=== PATIENT | female | born 1985 | race Caucasian/White ===

== ENCOUNTER 2020-04-15 17:59 | Emergency (ER) | payer OTHER ==
[~2020-04-15] VITALS: Ht 172.7 cm; Wt 90.7 kg
[~2020-04-15 17:59] MED LIST: ADVAIR 250-501 EACH IH; ALLEGRA30 MG PO; HYDROXYZINE HCL25 M1 GT; MEDROLDOSEPACK PO
[2020-04-15 18:41] LABS: URINE BILIRUBIN NEGATIVE (Negative); URINE BLOOD NEGATIVE (Negative); URINE CLARITY CLEAR; URINE COLOR YELLOW; URINE GLUCOSE-RANDOM* NEGATIVE (Negative); URINE KETONES NEGATIVE (Negative); URINE LEUKOCYTES-REFLEX NEGATIVE (Negative); URINE NITRITE-REFLEX NEGATIVE (Negative); URINE PROTEIN (DIPSTICK) NEGATIVE (Negative); URINE SPECIFIC GRAVITY >= 1.030 (1.005-1.035); URINE UROBILINOGEN 0.2 E.U./dl (0.2-1.0)
[2020-04-15 19:03] LABS: ABSOLUTE NEUTROPHILS 7.1 thou/uL (1.4-8.2); BASOPHILS 0.5 % (0.0-2.0); EOSINOPHILS 9.5 % (0.0-3.0); HEMATOCRIT 39.2 % (37.0-47.0); HEMOGLOBIN 13.5 gm/dL (12.0-15.0); LYMPHOCYTES 16.3 % (24.0-44.0); MCH 30.5 pg (26.0-34.0); MCHC 34.4 g/dL (28.0-37.0); MCV 88.7 fL (80.0-100.0); MONOCYTES 7.5 % (1.0-8.0); PLATELET COUNT 435 thou/uL (150-400); POLYS 66.2 % (36.0-66.0); RBC 4.42 mil/uL (4.20-5.00); RDW 13.4 % (10.5-14.5); WBC 10.8 thou/uL (4.0-11.0)
[2020-04-15 19:12] LABS: ANION GAP 8 mmol/L (7-16); BUN 6 mg/dL (7-18); CALCIUM 8.4 mg/dL (8.5-10.1); CHLORIDE 104 mmol/L (98-107); CO2 25 mmol/L (21-32); CREATININE 0.9 mg/dL (0.6-1.0); GLUCOSE 104 mg/dL (74-106); POTASSIUM 3.9 mmol/L (3.5-5.1); SODIUM 137 mmol/L (136-145)
[2020-04-15] MEDS ORDERED: AMITRIPTYLINE150 MG PO (19:18)
[2020-04-15] MEDS ORDERED: OXTELLAR XR300 MG PO (19:19)
[2020-04-15 19:22] LABS: ALBUMIN 3.5 g/dL (3.4-5.0); DIRECT BILIRUBIN < 0.1 mg/dL (<0.1-0.2); MAGNESIUM 1.8 mg/dL (1.8-2.4); SGOT 34 U/L (15-37); SGPT 65 U/L (30-65); TOTAL BILIRUBIN 0.2 mg/dL (0.2-1.0); TOTAL PROTEIN 6.4 g/dL (6.4-8.2); TROPONIN-I <0.06 ng/mL (<0.06)
[2020-04-15] MEDS ORDERED: NAPROSYN500 MG PO (20:31)
[2020-04-15] MEDS ORDERED: SORBUTUSS LIQU474 ML PO (20:31)
[2020-04-15] MEDS ORDERED: TYLENOL325 M1 PO (20:31)
[2020-04-15 20:46] VITALS: BP 131/82
--- NOTE | 2020-04-18 07:18 | EKG ---
[address] [address] ELECTROCARDIOGRAM REPORT Name: PETAR MAHAJAN Room #: DEP [facility]US[facility]ahnaz#: [id number] Admission: 04/15/20 Attend Phys: Discharge: 04/15/20 Date of : 89 Report #: [id number] [facility] ED Test Date: 2020-04-15 Test Time: 18:18:31 Pat Name: PETAR MAHAJAN Department: Room: Gender: F Director Of Recruitment And Admissions: JCHAIDARRION : 1985 Requested By: Cuco Prater Order Number: [id number] MD: Jonathan Chang Measurements Intervals [place] Rate: 124 P: 36 WI: 158 QRS: 52 QRSD: 84 T: 22 QT: 325 QTc: 467 Interpretive Statements Sinus tachycardia Baseline wander in lead(s) V5 No previous ECG available for comparison Electronically Signed On 04-18-2020 7:18:27 [employer] ASSIST[employer] by Jonathan Chang [email or web address] <ELECTRONICALLY SIGNED> By: Jonathan Chang MD, [facility] 04/18/20 0718 1818 181 Jonathan Chang MD, FACC /EPI
== END 2020-04-15 20:46 | disposition home or self-care (01) ==
LOC: ER 17:59
PROVIDERS: Emergency Medicine
DX: R53.83 Other fatigue (principal); J06.9 Acute upper respiratory infection, unspecified; J45.909 Unspecified asthma, uncomplicated; F17.210 Nicotine dependence, cigarettes, uncomplicated; Z79.899 Other long term (current) drug therapy; Z88.0 Allergy status to penicillin; Z20.822 Contact with and (suspected) exposure to COVID-19